=== PATIENT | male | born 1995 | race Caucasian/White ===

== ENCOUNTER 2024-07-02 14:48 | Inpatient (IN) | payer OTHER, SELFPAY ==
[2024-07-02] VITALS (10 sets, daily range): BP systolic 120–154; BP diastolic 72–101; BMI 25.8
--- NOTE | 2024-07-02 10:20 | ED.GENMED ---
History of Present Illness
General
Chief Complaint: Abdominal Symptoms
Source: patient and family
Time Seen by Provider: 07/02/24 10:01
History of Present Illness
History of Present Illness:
29-year-old male with past medical history of atrial fibrillation and cannabinoid hyperemesis presenting to the emergency department for evaluation of nausea vomiting and abdominal pain that started this past Wednesday evening into and has
been persistent, patient went to urgent care yesterday due to the symptoms and was given fluids as well as Zofran with initial relief but symptoms started again yesterday evening into this morning. Patient states that this feels similar to previous
episodes of cannabinoid hyperemesis but states the pain in the left side of his abdomen was little bit more severe than usual which is what brought him to the ER today. Patient states that despite being prescribed Zofran by the urgent care he was
unable to make it to the pharmacy to pick this up and did not take anything for symptoms prior to arrival. He does note that his last marijuana use was Wednesday prior to the symptoms starting. Patient denies any fevers, chills, rigors, bowel
changes, urinary symptoms or any other concerns presently. Social history was noted for vaping in addition to the marijuana use but patient denies any alcohol or other substance use. Family history was noted for multiple family members with prior
cholecystectomies.
Past History
Past History
ED Past Medical History: Arrthythmia and Psychiatric
ED Past Surgical History: None
Patient has exhibited threatening behavior?: No
Social History
Tobacco: Vaping
Alcohol: None
Drug: Marijuana
Personal: Single
Living: with family
Employment: Employed
Family History
Family History: Other (Aortic dissection)
Review of Systems
Review of Systems
All Other Systems: ROS reviewed and negative except as documented in HPI and ROS
Phy Exam
Physical Exam
Physical Exam:
GENERAL: Alert , moaning and appears uncomfortable, clear vomitus in emesis bag
EYE: clear conjunctiva b/l
HEAD: NCAT
ENT: mmm.
CARDIAC: Regular rate and rhythm .
LUNGS: Clear breath sounds bilaterally, no acute respiratory distress, no wheezes/rales/rhonchi
ABDOMEN: Soft, without focal tenderness, no r/g, no cvat, negative Roberts sign, no tenderness at McBurney's point
NEUROLOGICAL: Alert and oriented
SKIN: Warm and dry, skin intact.
MUSCULOSKELETAL: well perfused.
PSYCH: Normal and appropriate interaction.
Scores
Heart Failure Risk
Heart Failure Risk Score: Not Applicable
Heart Score for Chest Pain Patients
STEMI patient?: Not applicable
Withdrawal Assessment of Alcohol
Withdrawal Assessment Completed?: Not applicable
Course
Orders/Labs/Results
Orders:
Orders
07/02/24 10:19
0.9% Sodium Chloride 1000 ml [Nss] 1,000 ml IV BOLUS
Ketorolac [Toradol] 30 mg IV NOW STA
Ondansetron Injectable [Zofran] 4 mg IV NOW STA
07/02/24 10:24
Complete Blood Count/With Diff Urgent
Comprehensive Metabolic Panel Urgent
Lipase Urgent
07/02/24 11:00
EKG [Electrocardiogram (*1)] Urgent
Reason for Study: Chest Pain
07/02/24 11:01
EKG- Treatment ONCE
07/02/24 11:23
CT Abd/pelvis W Iv Cont Urgent
Comment:
Reason For Exam: left sided abd pain, N/V
07/02/24 11:47
Ondansetron Injectable [Zofran] 4 mg IV NOW STA
07/02/24 13:03
0.9% Sodium Chloride 1000 ml [Nss] 1,000 ml IV BOLUS
07/02/24 13:04
CT Chest Pe Study Urgent
Comment:
Reason For Exam: hypoxia
07/02/24 14:04
COVID-19 Antigen Stat
Source: Nasal Swab
07/02/24 14:05
Urinalysis Reflex To Culture Urgent
Date Specimen was Collected: 07/02/24
Time Specimen was Collected: 13:20
Urine Drug Abuse Screen Urgent
Date Specimen was Collected: 07/02/24
Time Specimen was Collected: 14:04
Abnormal Lab Results
07/02/24
10:24
WBC 17.1 H 10^3/uL
(4.8-10.8)
MCV 79.1 L fL
(80.0-94.0)
MCHC 37.5 H g/dL
(33.0-37.0)
Abs Immat Gran (auto) 0.1 H 10^3/uL
(0-0.05)
Absolute Neuts (auto) 11.7 H 10^3/uL
(1.4-6.5)
Absolute Monos (auto) 2.1 H 10^3/uL
(0.1-0.6)
Lymphocytes % 18.7 L %
(20.5-51.1)
Monocytes % 12.2 H %
(1.7-9.3)
Carbon Dioxide 21 L mmol/L
(22-30)
Glucose 130 H mg/dl
(70-99)
Total Bilirubin 2.1 H mg/dl
(0.2-1.3)
AST 68 H U/L
(17-59)
ALT 92 H U/L
(0-50)
Total Protein 8.4 H g/dl
(6.3-8.2)
Albumin 5.3 H g/dl
(3.5-5.0)
07/02/24 10:24
07/02/24 10:24
Vital Signs
Initial and Last Documented VS:
Initial Vital Signs
Temp Pulse Resp BP Pulse Ox
98.7 F 71 18 153/85 98
07/02/24 09:55 07/02/24 09:55 07/02/24 09:55 07/02/24 09:55 07/02/24 09:55
Last Documented Vital Signs
Temp Pulse Resp BP Pulse Ox
97.8 F 85 19 146/90 98
07/02/24 13:19 07/02/24 14:00 07/02/24 14:00 07/02/24 13:00 07/02/24 14:00
Stock House Worker consulted with Physician
Stock House Worker consulted with physician?: Yes
Name of Physician Consulted: Gary
MDM/Problems Addressed
Differential Diagnosis Includes:
Cannabinoid hyperemesis, dehydration, electrolyte disturbance, gastroenteritis, colitis
MDM/Problems Addressed:
29-year-old male presenting to the emergency department for evaluation of persistent nausea and vomiting since Wednesday evening into . Patient with noted history for cannabinoid hyperemesis and notes last use of cannabis was Wednesday
afternoon. Patient went to urgent care yesterday and was given Zofran and fluids. He notes that his hands were contracted and had difficulty moving fingers but this improved after the fluids so there is likely a large component of dehydration.
Will check labs and treat with fluids, Zofran and Toradol. Reassessment following. If no improvement will add on CT to evaluate for any possible surgical causes for patient's symptoms
*Radiology
Radiology exam reviewed: radiology read reviewed
*Pulse Oximetry
Patient hypoxic: yes
*Critical Care Note
Total Time (30-74mins, 75-104mins- exclusive of procedures): Not Applicable
Data Reviewed
Review of Other/Old Records Reveals: Labs and Records
Source: patient, records and family
Comment
Comment:
11:30 AM: Patient sleeping and in no acute distress. Continuing to monitor. Labs did reveal a leukocytosis of 17,000. I suspect this is likely reactive from vomiting however given patient's reported pain will obtain CT scan to further evaluate.
Liver function test noted to be chronically slightly elevated. Doubt gallbladder pathology.
11:50 AM: Patient awoke and noted increased nausea again. [address] pending
Patient Management
Discussion with other providers: Hospitalist
Escalation/DeEscalation of care consider admission/obs:
12:50 PM: Patient CT scan without any acute abnormalities. It was noted on his telemetry that patient's oxygen saturation would drop into the low 70s with good waveform. On my reassessment patient sleeping and upon awakening his oxygen saturation
will come back up. Patient is more anxious and tachypneic now than on arrival. Patient falling asleep again and O2 started to drop. Decision made to proceed with sending patient back to CT scan for PE study. 2nd liter IVF ordered. Plan for admit
pending CTA results.
1:30 PM: CT chest negative for PE or acute pathologies. Unclear reasoning for hypoxia. ? BELKYS. Will admit for further eval given symptoms combined with degree of hypoxia. Hospitalist aware and accepts.
ED Attending Note
-
Portions of this chart may have been created with voice recognition software.� Occasional wrong word or��sound alike� substitutions may have occurred due to the inherent limitations of voice recognition software.
Discharge Plan
Departure
Patient Disposition: Admit
Date of Disposition: 07/02/24
Time of Disposition: 13:58
Presentation/result/management discussed w/ accepting MD/DO: Hospitalist
Discharge Problem:
Nausea and vomiting, Hypoxia
Prescriptions:
No Action
Theragen Tablet
1 tab PO DAILY
ascorbic acid (vitamin C) [Vitamin C] 500 mg Tablet
500 mg PO DAILY
Pepto-Bismol 262 mg Tablet
524 mg PO QIDPRN PRN (Reason: heartburn)
Referrals:
Pramod Ochoa DO [Family Provider] -
Interventions
Interventions:
*Risk Screen - Suicide Last Done: 07/02/24 10:21
*General Assessment Last Done: 07/02/24 09:55
*Neglect/Abuse Screening Last Done: 07/02/24 10:21
ED- Fall Risk Assessment Last Done: 07/02/24 10:30
*ED COVID-19 Vaccine History Last Done: 07/02/24 10:21
UV-Txddwa-Nboyfdqwxj Assessment Last Done: 07/02/24 10:30
Discharge Date and Time
Print Language: ST LUCIAN
[2024-07-02] MEDS: NSS 1000 IV ×2 (10:23→13:09)
[2024-07-02] MEDS: ZOFRAN 4 MG IV ×4 (10:26→23:50)
[2024-07-02] MEDS: TORADOL 30 MG IV (10:27)
[2024-07-02 10:41] LABS: % Basophils 0.2 % (0-2); % Eosinophils 0.1 % (0-6); % Immature Granulocytes 0.4 % (0-0.5); % Lymphocytes 18.7 % (20.5-51.1); % Monocytes 12.2 % (1.7-9.3); % Neutrophils 68.4 % (42.2-75.2); Absolute Immature Granulocytes 0.1 10^3/uL (0-0.05); Absolute Lymphocytes 3.2 10^3/uL (1.2-3.4); Absolute Monocytes 2.1 10^3/uL (0.1-0.6); Absolute Neutrophils 11.7 10^3/uL (1.4-6.5); Hematocrit 42.1 % (39.0-52.0); Hemoglobin 15.8 g/dL (13.0-18.0); Mean Corp Hgb Conc. 37.5 g/dL (33.0-37.0); Mean Corpuscular Hgb 29.7 pg (27.0-31.0); Mean Corpuscular Volume 79.1 fL (80.0-94.0); Nucleated Red Blood Cells % 0 % (-); Platelet Count 322 10^3/uL (130-400); Red Blood Cell Count 5.32 10^6/uL (4.70-6.10); Red Cell Dist. Width 12.6 % (11.5-14.5); White Blood Cell Count 17.1 10^3/uL (4.8-10.8)
[2024-07-02 10:50] LABS: ALT (SGPT) 92 U/L (0-50); AST (SGOT) 68 U/L (17-59); Albumin 5.3 g/dl (3.5-5.0); Alkaline Phosphatase 87 U/L (38-126); Blood Urea Nitrogen 17 mg/dl (9-20); Calcium 10.2 mg/dl (8.4-10.2); Carbon Dioxide 21 mmol/L (22-30); Chloride 98 mmol/L (98-107); Estimated Creatinine Clearance > 125 ml/min; Glucose 130 mg/dl (70-99); Lipase 65 U/L (23-300); Potassium 3.6 mmol/L (3.5-5.1); Sodium 140 mmol/L (135-145); Total Bilirubin 2.1 mg/dl (0.2-1.3); Total Protein 8.4 g/dl (6.3-8.2); eGFR > 60.00
--- NOTE | 2024-07-02 14:01 | HPS.HSE ---
Family Physician
-
Family Physician: Pramod Ochoa
Chief Complaint
-
abdominal pain nausea vomiting
History of Present Illness
29-year-old with past medical history of A-fib and cannabinoid hyperemesis presented to us with left sided abdominal pain associated with n/v/d since Wednesday. on Wednesday, he was having multiple episodes of diarrhea.no more diarrhea but
vomiting since then. patient not able to tolerate any oral intake. he is complaining of left sided abdominal pain. denied fever, chills. he is complaining of worsening of his chronic head and neck pain. stated runny nose, mid chest burning and sob.
denied dysuria or hematuria.
he was noted hypoxic as he fall sleep. admitting for further management. Patient received Toradol, normal saline, Zofran in ER. Admitted for further management
Medical History
Past Medical History
Past Medical History: Reports Other
Additional Past Medical History:
A-fib
Past Surgical History: Reports None
Social History
Tobacco: Vaping
Alcohol: None
Drug: Marijuana
Living: With Family
Family History
Family History: Not pertinent
Allergies / Home Medications
Allergies reflects when Allergies were last updated in [facility].
Home Medications with original date entered in [facility]
Allergy/Medication List:
Allergies
Allergy/AdvReac Type Severity Reaction Status Date / Time
No Known Allergies Allergy Verified 07/02/24 09:57
Home Medications
ascorbic acid (vitamin C) 500 mg tablet (Vitamin C) 500 mg PO DAILY 07/02/24
bismuth subsalicylate 262 mg tablet (Pepto-Bismol) 524 mg PO QIDPRN PRN heartburn 07/02/24
therapeutic multivitamin 1 tab PO DAILY 07/02/24
Review of Systems
-
Constitutional: Reports No Symptoms
EENT: Reports No Symptoms
Respiratory: Reports Trouble Breathing
Cardiac: Reports Chest Pain
Abdomen/GI: Reports Abdominal Pain, Nausea, Vomiting and Diarrhea
: Reports No Symptoms
Musculoskeletal: Reports No Symptoms
Skin: Reports No Symptoms
Neurological: Reports Headache
Endocrine: Reports No Symptoms
Hematologic/Lymphatic: Reports No Symptoms
Psych: Reports No Symptoms
Physical Exam
Vital Signs
Vital Signs
Temp Pulse Resp BP Pulse Ox
97.8 F 95 23 146/90 98
07/02/24 13:19 07/02/24 13:00 07/02/24 13:00 07/02/24 13:00 07/02/24 13:00
Physical Exam
General: Well Developed, Well Nourished and No Apparent Distress
HEENT: NormoCephalic, Moist mucous membranes and Atraumatic
Respiratory: Clear
Cardiac: S1/S2 and Regular Rhythm; No Murmur or Rub
GI: Soft, Non Tender, Non Distended and Normal Bowel Sounds; No Organomegaly
Rectal: Deferred by Provider
Musculoskeletal: No Clubbing, No Cyanosis and No Edema
Skin: No Rash
Neuro: AO x 3 and Nonfocal/grossly intact
Psych: Calm
Laboratory Results
-
07/02/24 10:24
07/02/24 10:24
Laboratory Results
Total Bilirubin 2.1 mg/dl (0.2-1.3) H 07/02/24 10:24
AST 68 U/L (17-59) H 07/02/24 10:24
ALT 92 U/L (0-50) H 07/02/24 10:24
Alkaline Phosphatase 87 U/L (38-126) 07/02/24 10:24
Lipase 65 U/L (23-300) 07/02/24 10:24
Data Reviewed
-
CT Scan: Report Reviewed by me
Lab Data: Labs Reviewed by me
Impression/Plan
-
#abdominal pain associated with N/V unclear cause
-ast 68,alt 92,tbili 2.1
-CT abdomen pelvis with normal
-will obtain RUQ US
-regular diet
-Zofran prn for N/V
-iv zosyn
-GI consulted
#acute hypoxic respiratory failure unclear cause
-Chest CT with no central pulmonary embolism.Evaluation for peripheral pulmonary emboli is limited by patient respiratory motion as well as recent prior contrast injection
-will obtain nocturnal o2
#acute on chornic leukocytosis
-wbc 17.1
-UA pending
#acute on chronic LEPE
-will obtain head CT
-MRI of head
#hxt of paroxysmal atrial fib
-EKG with SINUS RHYTHM WITH MARKED SINUS ARRHYTHMIA
-ctm
#DVT prophylaxis
-Lovenox
#CODE status
-full code
[2024-07-02 14:26] LABS: Urine Albumin Trace (Neg - Trace); Urine Bilirubin Negative (Negative); Urine Character Clear (Clear); Urine Color Yellow; Urine Glucose Negative (Negative); Urine Ketone 3+ (Negative); Urine Leukocyte Negative (Negative); Urine Nitrite Negative (Negative); Urine Occult Blood Negative (Negative); Urine Urobilinogen Negative (Neg - 1+)
[2024-07-02 14:30] LABS: Amphetamines Negative (Negative); Barbiturates Negative (Negative); Benzodiazepines Negative (Negative); Buprenorphine Negative (Negative); Cocaine Negative (Negative); Marijuana Positive (Negative); Methadone Negative (Negative); Methamphetamines Negative (Negative); Opiates Negative (Negative); Phencyclidine Negative (Negative); Tricyclic Antidepressants Negative (Negative)
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
[2024-07-02] MEDS: ZOSYN 50 IV ×2 (15:22→22:49)
[2024-07-02 15:38] LABS: COVID-19 Antigen Negative (Negative)
[2024-07-02] MEDS: D5LR 1000 IV ×2 (16:24→23:52)
[2024-07-02] MEDS: TORADOL 10 MG IV (16:27)
--- NOTE | 2024-07-02 17:17 | CM ---
CM reviewed patient's chart. Spoke with patient at bedside. CM introduced self and role. Patient in visible pain and was holding a bag to collect any secretions that were coming out of his mouth.
PCP: Dr. Benavidez
Pharmacy: [facility]
Living situation: Patient lives alone in an apartment.
Finances: Patient denies any social insecurities. He is able to afford her housing, clothing, medications, food, utilities and transportation. He did express it's getting more and more difficult because he has to pay $400 for his 2 children each
month. 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
DME/Ambulation: Patient ambulates independently. He does not own any DME.
Transportation: Patient stated that his mother would provide transportation once he discharged,
Agreeable to home health care?: Yes, if needed.
ANTICIPATED DISCHARGE DISPOSITION:
Home, at apartment, when medically cleared.
CM will continue to follow case and available for further assistance.
[2024-07-02] MEDS: LOVENOX 40 MG SC (18:03)
[2024-07-02] MEDS: COMPAZINE 10 MG IV (20:07)
[2024-07-03] MEDS: COMPAZINE 10 MG IV (01:32)
[2024-07-03] MEDS: TORADOL 10 MG IV (01:34)
--- NOTE | 2024-07-03 03:34 | RESPNOTE ---
Pt had removed nocturnal pulse ox after I had placed him on it. RN ststed he was leaving AMA. No date to download for study
[2024-07-03 03:36] VITALS: BP 168/98
--- NOTE | 2024-07-03 03:54 | W.PN.UPDATE ---
Addendum entered and electronically signed by ANKITA Cisse 07/03/24 04:02:
also advised to stop marijuana use
Original Note:
Update Note
Progress Note Update
Notified by nurse that pt feel like we are not doing anything for him and would like to leave. Nausea meds changed to compazine earlier in shift as zofran wasn't working.
PT allowed to take hot shower in attempt to relieve some of his symptoms (nausea and abd pain). Shower did help some
Pt would rather sleep in own bed and take showers in own home.
Risks of leaving AMA discussed. Pt stated he has zofran script at home from and urgent care. Advised with cannaboid hyperemesis symptom relief can be often helped by hot showers and capsaicin cream to abd,
If symptoms worsen return to ED
--- NOTE | 2024-07-03 04:27 | PTCARENOTE ---
Pt with frequent bilious emesis and abdominal pain overnight. PRN zofran given and compazine x 2 administered. Toradol given for pain. Requested hot shower which provided some relief but pt requesting to leave AMA. SECURITY BUSINESS ANALYST at bedside. Pt was able to
ambulate with staff at side to main entrance. Pt picked up by mother.
== END 2024-07-03 04:37 | disposition left against medical advice (07) | DRG 392 ==
LOC: 3 WEST ACU 14:48
PROVIDERS: Physician Assistant Medical; Registered Nurse; ADMITTING PHYSICIAN Internal Medicine; EMERGENCY PHYSICIAN Emergency Medicine; FAMILY PHYSICIAN Family Medicine
DX: R11.2 Nausea with vomiting, unspecified (principal); F12.920 Cannabis use, unspecified with intoxication, uncomplicated; D72.829 Elevated white blood cell count, unspecified; R09.02 Hypoxemia
CPT/HCPCS: 70450; 71275; 74177; 76700; 80053; 80306; 81003; 83690; 85025; 86753; 87015; 87207; 87811; 93005; 96361; 96365; 96375; 96376; 99285; Q9967

== ENCOUNTER 2024-07-05 13:19 | Emergency (ER) | payer OTHER, SELFPAY ==
[2024-07-05 13:51] LABS: ALT (SGPT) 208 U/L (0-50); AST (SGOT) 75 U/L (17-59); Albumin 5.4 g/dl (3.5-5.0); Alkaline Phosphatase 81 U/L (38-126); Blood Urea Nitrogen 16 mg/dl (9-20); Calcium 10.4 mg/dl (8.4-10.2); Carbon Dioxide 23 mmol/L (22-30); Chloride 90 mmol/L (98-107); Glucose 132 mg/dl (70-99); Lipase 387 U/L (23-300); Potassium 3.4 mmol/L (3.5-5.1); Sodium 133 mmol/L (135-145); Total Bilirubin 2.1 mg/dl (0.2-1.3); Total Protein 8.5 g/dl (6.3-8.2); eGFR > 60.00
[2024-07-05 14:17] LABS: Hematocrit 38.8 % (39.0-52.0); Hemoglobin 15.1 g/dL (13.0-18.0); Mean Corp Hgb Conc. 38.9 g/dL (33.0-37.0); Mean Corpuscular Hgb 30.6 pg (27.0-31.0); Mean Corpuscular Volume 78.5 fL (80.0-94.0); Platelet Count 241 10^3/uL (130-400); Red Blood Cell Count 4.94 10^6/uL (4.70-6.10); Red Cell Dist. Width 12.1 % (11.5-14.5); White Blood Cell Count 14.5 10^3/uL (4.8-10.8)
[2024-07-05 14:18] LABS: Mean Platelet Volume 10.8 fL (7.4-10.4)
[2024-07-05 14:20] LABS: % Basophils 0.2 % (0-2); % Eosinophils 0.9 % (0-6); % Immature Granulocytes 0.8 % (0-0.5); % Lymphocytes 21.7 % (20.5-51.1); % Monocytes 12.9 % (1.7-9.3); % Neutrophils 63.5 % (42.2-75.2); Absolute Neutrophils 9.2 10^3/uL (1.4-6.5)
[2024-07-05 14:21] LABS: Absolute Eosinophils 0.1 10^3/uL (0-0.7); Absolute Immature Granulocytes 0.1 10^3/uL (0-0.05); Absolute Lymphocytes 3.1 10^3/uL (1.2-3.4); Absolute Monocytes 1.9 10^3/uL (0.1-0.6); Nucleated Red Blood Cells % 0 % (-)
[2024-07-05 14:25] LABS: Lactic Acid 2.3 mmol/L (0.7-2.0)
[2024-07-05 14:44] VITALS: BMI 25.2
--- NOTE | 2024-07-05 15:07 | ED.GENMED ---
History of Present Illness
General
Chief Complaint: Abdominal Pain
Source: patient
Exam Limitations: none
Time Seen by Provider: 07/05/24 14:40
Nursing documentation reviewed up to this point in time: agreed with
History of Present Illness
History of Present Illness:
Patient is a 29-year-old male with history of A-fib a flutter/cannabinoid hyperemesis recently recently admitted for nausea vomiting diarrhea presents back to the ER. Patient apparently signed out AMA on Jul 02 .
Patient was admitted for nausea vomiting it was thought to be hyperemesis cannabinoid.
Patient was admitted not necessarily for nausea vomiting however as per chart there was a concern for hypoxia and obstructive sleep apnea. Patient had imaging including normal CT of the abdomen and interval ultrasound of the abdomen
Past History
Past History
ED Past Medical History: Arrthythmia and Psychiatric
ED Past Surgical History: None
Patient has exhibited threatening behavior?: No
Social History
Tobacco: Vaping
Alcohol: None
Drug: Marijuana
Personal: Single
Living: with family
Employment: Employed
Family History
Family History: Other (Aortic dissection)
Review of Systems
Review of Systems
Allergies reviewed?: Yes
All Other Systems: ROS reviewed and negative except as documented in HPI and ROS
Constitutional: Reports no symptoms; Denies fever, fatigue or chills
Cardiac: Reports no symptoms
ABD/GI: Reports abdominal pain, nausea and vomiting
: Reports no symptoms
Musculoskeletal: Reports no symptoms
Skin: Reports no symptoms
Neurological: Reports no symptoms
Psychiatric: Reports no symptoms
Phy Exam
General Physical Exam
General Presentation: no apparent distress
General age: appears stated age
General Skin: warm and dry
General Habitus: normal
General Mental: alert
General Hydration: appears well hydrated
Cardiovascular Exam
Cardiovascular Exam: regular rate/rhythm, no murmur and normal peripheral pulses
Pulmonary Exam
Pulmonary Exam: lungs clear and no respiratory distress
Gastrointestinal Exam
Gastrointestinal Exam: non tender and soft
Neurological Exam
Neurological Exam: alert and oriented x3
Musculoskeletal Exam
Musculoskeletal Exam: full ROM
Skin Exam
Skin Exam: normal color and warm/dry
Psychiatric Exam
Psychiatric Exam: normal mood/affect
Course
Orders/Labs/Results
Orders:
Orders
07/05/24 13:25
Complete Blood Count/With Diff Urgent
Comprehensive Metabolic Panel Urgent
Lactic Acid Urgent
Lipase Urgent
07/05/24 15:20
Dicyclomine HCl [Bentyl] 20 mg IM NOW STA
07/05/24 15:31
Ondansetron Injectable [Zofran] 4 mg IV NOW STA
07/05/24 15:32
0.9% Sodium Chloride 1000 ml [Nss] 1,000 ml IV BOLUS
07/05/24 15:33
Ondansetron Injectable [Zofran] 4 mg .ROUTE .STK-MED ONE
07/05/24 16:15
Diphenhydramine [Benadryl] 50 mg .ROUTE .STK-MED ONE
Prochlorperazine [Compazine] 10 mg .ROUTE .STK-MED ONE
Prochlorperazine [Compazine] 10 mg IV NOW STA
07/05/24 16:16
Diphenhydramine [Benadryl] 25 mg IV NOW STA
07/05/24 16:30
0.9% Sodium Chloride 500 ml [Nss] 1,000 ml IV BOLUS
Abnormal Lab Results
07/05/24
13:25
WBC 14.5 H 10^3/uL
(4.8-10.8)
Hct 38.8 L %
(39.0-52.0)
MCV 78.5 L fL
(80.0-94.0)
MCHC 38.9 H g/dL
(33.0-37.0)
MPV 10.8 H fL
(7.4-10.4)
Abs Immat Gran (auto) 0.1 H 10^3/uL
(0-0.05)
Absolute Neuts (auto) 9.2 H 10^3/uL
(1.4-6.5)
Absolute Monos (auto) 1.9 H 10^3/uL
(0.1-0.6)
Immature Gran % 0.8 H %
(0-0.5)
Monocytes % 12.9 H %
(1.7-9.3)
Sodium 133 L mmol/L
(135-145)
Potassium 3.4 L mmol/L
(3.5-5.1)
Chloride 90 L mmol/L
(98-107)
Glucose 132 H mg/dl
(70-99)
Lactic Acid 2.3 H mmol/L
(0.7-2.0)
Calcium 10.4 H mg/dl
(8.4-10.2)
Total Bilirubin 2.1 H mg/dl
(0.2-1.3)
AST 75 H U/L
(17-59)
ALT 208 H U/L
(0-50)
Total Protein 8.5 H g/dl
(6.3-8.2)
Albumin 5.4 H g/dl
(3.5-5.0)
Lipase 387 H U/L
(23-300)
07/05/24 13:25
07/05/24 13:25
Vital Signs
Initial and Last Documented VS:
Initial Vital Signs
Temp Pulse Resp Pulse Ox
98.3 F 99 18 98
07/05/24 13:20 07/05/24 13:20 07/05/24 13:20 07/05/24 13:20
Last Documented Vital Signs
Temp Pulse Resp BP Pulse Ox
98.3 F 79 16 145/103 100
07/05/24 13:20 07/05/24 18:34 07/05/24 18:34 07/05/24 18:34 07/05/24 18:34
Juice Tester consulted with Physician
Juice Tester consulted with physician?: Yes
Name of Physician Consulted: Joseph
MDM/Problems Addressed
MDM/Problems Addressed:
Patient is a 29-year-old male with past medical history of hyperemesis, A-fib. Patient was admitted here recently and signed out several days ago AGAINST MEDICAL ADVICE. Patient was initially admitted because he was found to be mildly hypoxic and
there was concern for obstructive sleep apnea. Patient as documented did have elevated transaminases and had a normal CAT scan and normal ultrasound.
Patient presents back with nausea and vomiting unable to keep anything down. Patient complains of mild nonspecific abdominal pain. Patient was given Bentyl which did improve his symptoms of pain. Patient was given Zofran and Compazine Benadryl
with 2 L of fluid feeling much better tolerating fluids.
Labs reviewed today compared to labs 3 days ago. White count has improved hemoglobin stable; patient still with elevated function tests. On re-exam pt is much more comfortable as documented. d/c /w ED physician stable for d/c home.
I did not send patient home with Compazine and cancelled this as it was documented in previous chart that pt had slight prolonged qtc . d/c close outpt f/u by pcp.
*Pulse Oximetry
Patient hypoxic: no
*Critical Care Note
Total Time (30-74mins, 75-104mins- exclusive of procedures): Not Applicable
Data Reviewed
Review of Other/Old Records Reveals: Labs, Radiology Studies and Other (previous hospitalist notes )
Source: patient
ED Attending Note
-
Portions of this chart may have been created with voice recognition software.� Occasional wrong word or��sound alike� substitutions may have occurred due to the inherent limitations of voice recognition software.
Discharge Plan
Departure
Patient Disposition: Home (Routine Discharge)
Date of Disposition: 07/05/24
Time of Disposition: 18:33
Patient with high blood pressure during this ER visit?: Yes
Condition: Fair
Covid-19: Not Applicable
Discharge Problem:
Nausea and vomiting
Instructions: Clear Liquid Diet, Nausea and Vomiting, Adult (DC)
Prescriptions:
New
prochlorperazine maleate 10 mg tablet
10 mg PO TID PRN (Reason: nausea and vomiting) Qty: 10 0RF
No Action
Theragen Tablet
1 tab PO DAILY
ascorbic acid (vitamin C) [Vitamin C] 500 mg Tablet
500 mg PO DAILY
Pepto-Bismol 262 mg Tablet
524 mg PO QIDPRN PRN (Reason: heartburn)
Referrals:
Quinton Santoyo DO [Family Provider] -
Activity Restrictions/Additional Instructions:
As discussed clear fluids for the next 24 hours followed by bland solid foods. A prescription for nausea medicine was sent to your pharmacy take as needed. Follow-up with your family doctor in the next several days for reevaluation of your
symptoms. Also follow-up for abnormal liver function tests. RETURN if any worsening of symptoms if worsening abdominal pain nausea vomiting if you are unable to tolerate fluids , fevers or any other concerns .
Interventions
Interventions:
*Risk Screen - Suicide Last Done: 07/05/24 13:20
*General Assessment Last Done: 07/05/24 13:20
*Neglect/Abuse Screening Last Done: 07/05/24 13:20
ED- Fall Risk Assessment Last Done: 07/05/24 15:15
*ED COVID-19 Vaccine History Last Done: 07/05/24 18:59
*Nursing Disposition Last Done: 07/05/24 18:59
FT-Qfyekj-Ophsucjupd Assessment Last Done: 07/05/24 15:15
Discharge Date and Time
Discharge Date/Time: 07/05/24 19:01
Print Language: ARABIC
[2024-07-05 15:12] VITALS: BP 131/116
--- NOTE | 2024-07-05 15:17 | EDRN ---
Pt admits to smoking marijuana w/ admitted last use .
[2024-07-05] MEDS: BENTYL 20 MG IM (15:36)
[2024-07-05] MEDS: NSS 1000 IV ×2 (15:41→16:30)
[2024-07-05] MEDS: ZOFRAN 4 MG IV (15:41)
[2024-07-05] MEDS: COMPAZINE 10 MG IV (16:23)
[2024-07-05] MEDS: BENADRYL 25 MG IV (16:23)
--- NOTE | 2024-07-05 16:44 | EDRN ---
administered 2 more warm blankets.
[2024-07-05 16:46] VITALS: BP 128/82
--- NOTE | 2024-07-05 17:18 | EDRN ---
Pt was awaken, given a small cup of natacha bessy and advised to take some sips to see if he can tolerate it.
--- NOTE | 2024-07-05 17:42 | EDRN ---
Pt was OOB to [facility] and voided a great deal per pt. Riya LUCIANO informed via TT. Pt is sipping on natacha bessy at this time.
[2024-07-05 18:34] VITALS: BP 145/103
--- NOTE | 2024-07-05 18:36 | EDRN ---
Pain throughout abdomen on arrival was 10/10. Pt was vomiting on arrival. Pt is now drinking sips of natacha bessy and not vomiting it and pain is down to 2-3/10. This RN TT'd Riya LUCIANO who is presently writing up pt's discharge. Pt also just
complained about IV access hurting at this time.
== END 2024-07-05 19:01 | disposition home or self-care (01) ==
LOC: EMR 13:19
PROVIDERS: Emergency Medicine; EMERGENCY PHYSICIAN Emergency Medicine; FAMILY PHYSICIAN Family Medicine
DX: R11.2 Nausea with vomiting, unspecified (principal); R03.0 Elevated blood-pressure reading, without diagnosis of hypertension; F17.290 Nicotine dependence, other tobacco product, uncomplicated; I48.91 Unspecified atrial fibrillation
CPT/HCPCS: 99284; 96374; 96375 ×2; 96361 ×2; 96372; 80053; 83605; 83690; 85025; 99285

== ENCOUNTER 2024-07-07 05:19 | Emergency (ER) | payer OTHER, SELFPAY ==
[2024-07-07 05:22] VITALS: BP 159/121
--- NOTE | 2024-07-07 06:46 | ED.GENMED ---
History of Present Illness
<Zehra Agustin DO, Resident - Last Filed: 07/07/24 11:23>
General
Chief Complaint: Abdominal Pain
Source: patient and family
Exam Limitations: none
Time Seen by Provider: 07/07/24 06:12
Nursing documentation reviewed up to this point in time: agreed with
History of Present Illness
History of Present Illness:
Mr. Alban Huston is a 29 yo male w pmh afib/aflutter and cannabinoid hyperemesis presenting with abdominal and chest pain. Pt has been vomiting for the past week. Unable to keep fluids down and feels dehydrated. Has been throwing up air for the past
day.
Abdominal pain is located in the epigastric region and RUQ. Pain is a 9/10 aching stomach pain. Sharp 10/10 lower sternal chest pain started at 0300 today. Pain is now a dull 5/10. Pt has dyspnea and states his chest wall feels 'thick.' Pt endorses
chills, night sweats, constipation x7days. Denies fever, headache, diarrhea, palpitations.
Pt seen in this ED 07/02 for N/V and abdominal pain. Admitted for monitoring due to hypoxic episodes of SpO2 in the 70s.
Workup included:
- unremarkable for acute pathologies on CT abdomen w contrast
- no central PE on CTA. evaluation limited for peripheral PE by pt respiratory motion and recent prior contrast injection
- u/s abdomen unremarkable for acute gallbladder pathology
- CT head w/o contrast unremarkable for acute intracranial abnormality.
Left [facility] on 07/03. Returned to this ED 07/05 for similar sx of N/V and abdominal pain and was discharged home.
Past History
<Zehra Agustin DO, Resident - Last Filed: 07/07/24 11:23>
Past History
ED Past Medical History: Arrthythmia and Psychiatric
ED Past Surgical History: None
Patient has exhibited threatening behavior?: No
Social History
Tobacco: Vaping
Alcohol: None
Drug: Marijuana
Personal: Single
Living: with family
Employment: Employed
Family History
Family History: Other (Aortic dissection)
Review of Systems
<Zehra Agustin DO, Resident - Last Filed: 07/07/24 11:23>
Review of Systems
Allergies reviewed?: Yes
Other source history: family
All Other Systems: ROS reviewed and negative except as documented in HPI and ROS
Phy Exam
<Zehra Agustin DO, Resident - Last Filed: 07/07/24 11:23>
Physical Exam
Physical Exam:
.
General Physical Exam
General Presentation: moderate distress
General age: appears stated age
General Skin: warm and dry
General Habitus: normal
General Mental: alert
General Hydration: dry mucous membranes and poor skin turgor
Cardiovascular Exam
Cardiovascular Exam: no edema, no gallop, no murmur, normal peripheral pulses and tachycardia
Heart Sounds: normal
Pulmonary Exam
Pulmonary Exam: lungs clear, no rales, no rhonchi, no wheezing and decreased breath sounds (on left)
Oxygen Status: room air
Cough: no cough
Gastrointestinal Exam
Gastrointestinal Exam: no organomegaly, guarding, no indwelling devices and no masses
Auscultation of Abdomen: hypoactive
Neurological Exam
Neurological Exam: alert and oriented x3
Course
<Zehra Agustin DO, Resident - Last Filed: 07/07/24 11:23>
Orders/Labs/Results
Orders:
Orders
07/07/24 05:27
ECG [Electrocardiogram (*1)] Urgent
Reason for Study: Chest Pain
07/07/24 05:28
EKG- Treatment ONCE
07/07/24 06:29
0.9% Sodium Chloride 1000 ml [Nss] 1,000 ml IV BOLUS
07/07/24 06:42
Ondansetron Injectable [Zofran] 4 mg IV NOW STA
07/07/24 07:02
Morphine Sulfate 4 mg IV NOW STA
Pantoprazole [Protonix IV] 40 mg IV NOW STA
Prochlorperazine [Compazine] 10 mg IV NOW STA
CR Chest - 2 Views Urgent
Comment:
Reason For Exam: vomiting, chest pain
07/07/24 07:34
Complete Blood Count/No Diff Urgent
Comprehensive Metabolic Panel Urgent
Lipase Urgent
07/07/24 09:05
0.9% Sodium Chloride 1000 ml [Nss] 1,000 ml IV BOLUS
Abnormal Lab Results
07/07/24
07:34
WBC 13.9 H 10^3/uL
(4.8-10.8)
MCHC 37.9 H g/dL
(33.0-37.0)
Sodium 134 L mmol/L
(135-145)
Chloride 95 L mmol/L
(98-107)
Carbon Dioxide 21 L mmol/L
(22-30)
Glucose 109 H mg/dl
(70-99)
Total Bilirubin 1.7 H mg/dl
(0.2-1.3)
ALT 154 H U/L
(0-50)
Albumin 5.1 H g/dl
(3.5-5.0)
07/07/24 07:34
07/07/24 07:34
Vital Signs
Initial and Last Documented VS:
Initial Vital Signs
Temp Pulse Resp BP Pulse Ox
98.2 F 114 19 159/121 96
07/07/24 05:22 07/07/24 05:22 07/07/24 05:22 07/07/24 05:22 07/07/24 05:22
Last Documented Vital Signs
Temp Pulse Resp BP Pulse Ox
98.2 F 71 14 129/82 100
07/07/24 05:22 07/07/24 08:00 07/07/24 08:00 07/07/24 08:00 07/07/24 08:00
<Wil Rogers, DO - Last Filed: 07/07/24 07:05>
Orders/Labs/Results
Orders:
Orders
07/07/24 05:27
ECG [Electrocardiogram (*1)] Urgent
Reason for Study: Chest Pain
07/07/24 05:28
EKG- Treatment ONCE
07/07/24 06:29
0.9% Sodium Chloride 1000 ml [Nss] 1,000 ml IV BOLUS
07/07/24 06:42
Ondansetron Injectable [Zofran] 4 mg IV NOW STA
07/07/24 07:02
Morphine Sulfate 4 mg IV NOW STA
Pantoprazole [Protonix IV] 40 mg IV NOW STA
Prochlorperazine [Compazine] 10 mg IV NOW STA
CR Chest - 2 Views Urgent
Comment:
Reason For Exam: vomiting, chest pain
07/07/24 07:34
Complete Blood Count/No Diff Urgent
Comprehensive Metabolic Panel Urgent
Lipase Urgent
07/07/24 09:05
0.9% Sodium Chloride 1000 ml [Nss] 1,000 ml IV BOLUS
Abnormal Lab Results
07/07/24
07:34
WBC 13.9 H 10^3/uL
(4.8-10.8)
MCHC 37.9 H g/dL
(33.0-37.0)
Sodium 134 L mmol/L
(135-145)
Chloride 95 L mmol/L
(98-107)
Carbon Dioxide 21 L mmol/L
(22-30)
Glucose 109 H mg/dl
(70-99)
Total Bilirubin 1.7 H mg/dl
(0.2-1.3)
ALT 154 H U/L
(0-50)
Albumin 5.1 H g/dl
(3.5-5.0)
07/07/24 07:34
07/07/24 07:34
Vital Signs
Initial and Last Documented VS:
Initial Vital Signs
Temp Pulse Resp BP Pulse Ox
98.2 F 114 19 159/121 96
07/07/24 05:22 07/07/24 05:22 07/07/24 05:22 07/07/24 05:22 07/07/24 05:22
Last Documented Vital Signs
Temp Pulse Resp BP Pulse Ox
98.2 F 71 14 129/82 100
07/07/24 05:22 07/07/24 08:00 07/07/24 08:00 07/07/24 08:00 07/07/24 08:00
<Zehra Agustin DO, Resident - Last Filed: 07/07/24 11:23>
MDM/Problems Addressed
Differential Diagnosis Includes:
Miryam-Isbell tear, pneumomediastinum, pancreatitis
MDM/Problems Addressed:
Miryam-Isbell tear unlikely due to no hematemesis. Hb increased to 16.7 from 15.1 two days ago, making a bleed less likely
Pneumomediastinum unlikely due to no acute cardiopulmonary findings on CXR.
Pancreatitis unlikely due to normal lipase of 57 U/L.
Chronic conditions affecting care: Arrhythmia
Acute Exacerbation and/or Progression of Chronic Illness: Arrhythmia
<Zehra Agustin DO, Resident - Last Filed: 07/07/24 11:23>
*Radiology
Radiology exam reviewed: preliminary read by ED provider and radiology read reviewed
*Pulse Oximetry
Patient hypoxic: no
*Critical Care Note
Total Time (30-74mins, 75-104mins- exclusive of procedures): Not Applicable
Data Reviewed
Review of Other/Old Records Reveals: Labs, Records, Radiology Studies, Progress Notes and Discharge Summary
Source: family
<Zehra Agustin DO, Resident - Last Filed: 07/07/24 11:23>
Update Note
Update Note:
Pt's nausea, CP, and abdominal pain resolved with 2L IV fluids, 4mg ondansetron, 40 mg pantoprazole, 10mg compazine, and 4 mg morphine.
ED Attending Note
<Zehra Agustin DO, Resident - Last Filed: 07/07/24 11:23>
-
Portions of this chart may have been created with voice recognition software.� Occasional wrong word or��sound alike� substitutions may have occurred due to the inherent limitations of voice recognition software.
<Wil Rogers DO - Last Filed: 07/07/24 07:05>
ED Attending Note
Patient seen and examined by attending physician: Yes
I performed a history and physical exam of patient and discussed management with resident, I reviewed resident's note and agree with documented findings and plan of care.: Yes
ED Attending Note:
I have seen and evaluated the patient with a [id number] encounter. I have spoken to the resident and involved in the medical history, the physical exam, medical decision making.
Evaluation and management service: agree unless noted differently below.
Results interpretation: agree unless noted differently below.
Focused HPI: 29-year-old male presenting with recurrent nausea, vomiting and chest pain. Patient has been seen multiple times for similar issues. He has had a CT to rule out PE. He has had a CT of his abdomen to rule out intra-abdominal
pathology. Patient is already treating himself as possible cannabis hyperemesis. He has been using capsaicin cream but is not helping. Patient has been unable to keep any food or water down
Physical exam: Sitting in bed uncomfortable. Dry mucous membranes. Mild epigastric tenderness.
Medical Decision Making: Given the vomiting and now with chest pain, will obtain x-ray to rule out any evidence of pneumomediastinum. I discussed my concern with the patient and mother at bedside that he appears to require admission to rule out
other pathology such as peptic ulcer disease. Patient is already indicating that has to leave by 3 PM and does not want a be admitted. Will give IV fluids, IV Pepcid and pain medicine. Will repeat blood work. Patient understands concern that I
have if he leaves and he has the capacity to make this decision
Discharge Plan
Departure
Patient Disposition: Home (Routine Discharge)
Date of Disposition: 07/07/24
Time of Disposition: 10:59
Patient with high blood pressure during this ER visit?: Yes
Condition: Good
Discharge Problem:
Nausea and vomiting, Esophagitis
Instructions: Esophagitis, Nausea and Vomiting, Adult (DC)
Prescriptions:
No Action
Theragen Tablet
1 tab PO DAILY
ascorbic acid (vitamin C) [Vitamin C] 500 mg Tablet
500 mg PO DAILY
Pepto-Bismol 262 mg Tablet
524 mg PO QIDPRN PRN (Reason: heartburn)
prochlorperazine maleate 10 mg tablet
10 mg PO TID PRN (Reason: nausea and vomiting) Qty: 10 0RF
Referrals:
Pramod Ochoa, DO [Family Provider] -
Activity Restrictions/Additional Instructions:
Please follow-up with a industrial design intern. Increase fluid intake. Return if symptoms worsen or if you start vomiting blood.
Interventions
Interventions:
*Risk Screen - Suicide Last Done: 07/07/24 05:22
*General Assessment Last Done: 07/07/24 05:22
*Neglect/Abuse Screening Last Done: 07/07/24 05:22
ED- Fall Risk Assessment Last Done: 07/07/24 07:42
*ED COVID-19 Vaccine History Last Done: 07/07/24 05:22
CI-Dniibp-Dxriezgbyj Assessment Last Done: 07/07/24 07:42
Discharge Date and Time
Print Language: GREEK
[2024-07-07] MEDS: NSS 1000 IV ×2 (07:38→09:23)
[2024-07-07] MEDS: ZOFRAN 4 MG IV (07:38)
[2024-07-07] MEDS: MORPHINE SULFATE 4 MG IV (07:39)
[2024-07-07] MEDS: PROTONIX IV 40 MG IV (07:39)
[2024-07-07] MEDS: COMPAZINE 10 MG IV (07:39)
[2024-07-07 07:55] VITALS: BP 129/82
[2024-07-07 07:59] VITALS: BMI 24.8
[2024-07-07 08:00] VITALS: BP 128/85; BP 129/82
[2024-07-07 08:08] LABS: ALT (SGPT) 154 U/L (0-50); AST (SGOT) 50 U/L (17-59); Albumin 5.1 g/dl (3.5-5.0); Alkaline Phosphatase 79 U/L (38-126); Blood Urea Nitrogen 14 mg/dl (9-20); Calcium 9.9 mg/dl (8.4-10.2); Carbon Dioxide 21 mmol/L (22-30); Chloride 95 mmol/L (98-107); Estimated Creatinine Clearance > 125 ml/min; Glucose 109 mg/dl (70-99); Lipase 57 U/L (23-300); Potassium 3.7 mmol/L (3.5-5.1); Sodium 134 mmol/L (135-145); Total Bilirubin 1.7 mg/dl (0.2-1.3); eGFR > 60.00
[2024-07-07 08:42] LABS: Hematocrit 44.1 % (39.0-52.0); Hemoglobin 16.7 g/dL (13.0-18.0); Mean Corp Hgb Conc. 37.9 g/dL (33.0-37.0); Mean Corpuscular Hgb 30.4 pg (27.0-31.0); Mean Corpuscular Volume 80.2 fL (80.0-94.0); Platelet Count 276 10^3/uL (130-400); Red Cell Dist. Width 11.9 % (11.5-14.5); White Blood Cell Count 13.9 10^3/uL (4.8-10.8)
[2024-07-07 09:01] VITALS: BP 128/89
[2024-07-07 10:00] VITALS: BP 123/85
[2024-07-07 10:38] VITALS: BP 135/96
== END 2024-07-07 11:26 | disposition home or self-care (01) ==
LOC: EMR 05:19
PROVIDERS: EMERGENCY PHYSICIAN Student in an Organized Health Care Education/Training Program; FAMILY PHYSICIAN Family Medicine
DX: R11.2 Nausea with vomiting, unspecified (principal); K20.90 Esophagitis, unspecified without bleeding; R07.89 Other chest pain; F17.290 Nicotine dependence, other tobacco product, uncomplicated; I48.91 Unspecified atrial fibrillation
CPT/HCPCS: 99283; 96374; 96375; 96361; 71046; 80053; 83690; 85027; 93005